=== PATIENT | female | born 1985 | race Caucasian/White ===

== ENCOUNTER 2020-11-15 10:10 | Emergency (ER) | payer MEDICARE, OTHER ==
[2020-11-15 10:19] VITALS: RESP 18
[2020-11-15] MEDS ORDERED: SODIUM CHLORIDE 0.9% 1,000 ML IV ONE ×2 (10:20→11:54)
[2020-11-15] MEDS ORDERED: ACETAMINOPHEN TAB 325 MG TAB PO STA (10:20)
[2020-11-15] MEDS ORDERED: SODIUM CHLORIDE 0.9% 1,000 ML IV SCH (10:30)
[2020-11-15 10:53] LABS: Basophils % (A) 1 %; Eosinophils # (A) 0.1 k/uL (0-0.7); Eosinophils % (A) 2 %; HCT 47.1 % (34.0-46.0); HGB 15.3 gm/dL (11.4-16.0); Lymphocytes # (A) 1.6 k/uL (1.0-4.8); Lymphocytes % (A) 33 %; MCH 28.3 pg (25.0-35.0); MCHC 32.6 g/dL (31.0-37.0); MCV 86.8 fL (80.0-100.0); Mean Platelet Volume 7.1; Monocytes # (A) 0.4 k/uL (0-1.0); Monocytes % (A) 7 %; Neutrophils # (A) 2.7 k/uL (1.3-7.7); Neutrophils % (A) 56 %; Platelet Count 197 k/uL (150-450); RBC 5.42 m/uL (3.80-5.40); RDW 13.9 % (11.5-15.5); WBC 4.9 k/uL (3.8-10.6)
[2020-11-15 11:04] LABS: ALT 50 U/L (4-34); AST 45 U/L (14-36); African American GFR (CKD) >90 (>60 ml/min/1.73 sqM); Albumin 4.4 g/dL (3.5-5.0); Alkaline Phosphatase 126 U/L (38-126); Anion Gap 12 mmol/L; Blood Urea Nitrogen 18 mg/dL (7-17); C Reactive Protein 27.1 mg/L (<10.0); Calcium 9.3 mg/dL (8.4-10.2); Carbon Dioxide 22 mmol/L (22-30); Chloride 105 mmol/L (98-107); Glucose 120 mg/dL (74-99); LDH 583 U/L (313-618); Non-African American GFR(CKD) 85 (>60 ml/min/1.73 sqM); Potassium 4.3 mmol/L (3.5-5.1); Sodium 139 mmol/L (137-145); Total Bilirubin 0.5 mg/dL (0.2-1.3); Total Protein 7.6 g/dL (6.3-8.2)
--- NOTE | 2020-11-15 11:04 | XR ---
EXAMINATION TYPE: XR chest 1V portable DATE OF EXAM: 11/15/2020 COMPARISON: NONE HISTORY: Shortness of breath,Suspected COVID-19 pneumonia TECHNIQUE: Single AP portable frontal view of the chest is obtained. FINDINGS: Slightly suboptimal due to portable technique and patient's large body habitus. There is n o focal air space opacity, pleural effusion, or pneumothorax seen. The cardiac silhouette size is up per limits of normal. Underlying scoliotic curvature or positioning. IMPRESSION: No acute airspace opacity clearly seen.
[2020-11-15 11:11] LABS: D-Dimer 0.45 mg/L FEU (<0.60); INR 0.9 (<1.2); Partial Thromboplastin Time 23.3 sec (22.0-30.0); Prothrombin Time 9.7 sec (9.0-12.0)
--- NOTE | 2020-11-15 11:17 | ED ---
SOB HPI - General Chief Complaint: Shortness of Breath Stated Complaint: Covid+/sob/fever Time Seen by Provider: 11/15/20 10:11 Source: patient, EMS Mode of arrival: EMS Limitations: no limitations - History of Present Illness Initial Comments: 35-year-old female with history of hypertension presenting to the ER today for chief complaint of fevers body aches loss of taste and smell. Patient states she has had fever body aches and loss of taste and smell since Wednesday. Patient states she has had worsening shortness of breath over the past 1-2 days. She denies chest pain. Deep inspiration leg swelling she admits to some nausea denies vomiting denies rashes. Patient denies any hemoptysis or pain with deep inspiration> patient states she has not been taking any medications for her fever because she had a reaction when she took tylenol WITH CODEINE and wasnt sure if it was the codeine or the tylenol that caused her legs to feel weird. Patient denies neck stiffness. Patient has no additional complaints. Upon arrival patient is not hypoxic but is febrile with HR elevated with is felt to be due to - Related Data Home Medications Medication Instructions Recorded Confirmed Acyclovir 400 mg PO BID 11/15/20 11/15/20 Amitriptyline HCl [Elavil] 25 mg PO HS 11/15/20 11/15/20 DULoxetine HCL [Cymbalta] 60 mg PO BID 11/15/20 11/15/20 LORazepam [Ativan] 1 mg PO Q6H PRN 11/15/20 11/15/20 Metoprolol Succinate [Toprol XL] 100 mg PO DAILY 11/15/20 11/15/20 Omeprazole 40 mg PO DAILY 11/15/20 11/15/20 lamoTRIgine [LaMICtal] 200 mg PO BID 11/15/20 11/15/20 medroxyPROGESTERone [Provera] 2.5 mg PO DAILY 11/15/20 11/15/20 Previous Rx's Medication Instructions Recorded Dexamethasone [Decadron] 6 mg PO DAILY 4 Days #4 tablet 11/15/20 Allergies Allergy/AdvReac Type Severity Reaction Status Date / Time adhesive tape Allergy Rash/Hives Verified 11/15/20 11:31 acetaminophen AdvReac Unknown Verified 11/15/20 11:31 [From Tylenol-Codeine #3] codeine AdvReac Unknown Verified 11/15/20 11:31 [From Tylenol-Codeine #3] Review of Systems ROS Statement: Those systems with pertinent positive or pertinent negative responses have been documented in the HPI. ROS Other: All systems not noted in ROS Statement are negative. Past Medical History Past Medical History: Hypertension History of Any Multi-Drug Resistant Organisms: None Reported Past Surgical History: No Surgical Hx Reported Past Psychological History: Anxiety Smoking Status: Current every day smoker Past Alcohol Use History: None Reported Past Drug Use History: None Reported General Exam - General Exam Comments Initial Comments: General: The patient is awake and alert, in no distress Eye: Pupils are equal, round and reactive to light, extra-ocular movements are intact. No nystagmus. There is normal conjunctiva bilaterally. No signs of icterus. Ears, nose, mouth and throat: There are moist mucous membranes and no oral lesions. Neck: The neck is supple, there is no tenderness or JVD. Cardiovascular: There is a regular rate and rhythm. No murmur, rub or gallop is appreciated. Respiratory: Lungs are clear to auscultation, respirations are non-labored, breath sounds are equal. No wheezes, stridor, rales, or rhonchi. No retractions or abdominal breathing Gastrointestinal: Soft, non-distended, non-tender abdomen without masses or organomegaly noted. There is no rebound or guarding present. Musculoskeletal: Normal ROM, no tenderness. Strength 5/5. Sensation intact. Pulses equal bilaterally 2+. Neurological: A&O x 3. CN II-XII intact, There are no obvious motor or sensory deficits. Coordination appears grossly intact. Speech is normal. Skin: Skin is warm and dry and no rashes or lesions are noted. No LE edema. Psychiatric: Cooperative, appropriate mood & affect, normal judgment. Limitations: no limitations Course Vital Signs 11/15/20 11/15/20 11/15/20 10:14 10:19 11:56 Temperature 100.4 F H 99.8 F H Pulse Rate 125 H 119 H Respiratory 18 18 18 Rate Blood Pressure 147/84 139/74 O2 Sat by Pulse 98 98 Oximetry Medical Decision Making - Medical Decision Making 35yo female presenting for body aches, fevers, dyspnea ocncern covid. Dimer (-), No extremity findings. Patient febrile on arrival. CXR clear. Patient is not hypoxic no appearing to be in respiratory distress. discussed admission vs discharge. patient prefers discharge at this time. reviewed case with attending Dr. Soto who is agreeable to discharge with oral steroids and return for worsening symptoms. patient is agreeable to this care plan and discharge at this time. Return parameters discussed at length - Lab Data Result diagrams: 11/15/20 10:33 11/15/20 10:33 Lab Results 11/15/20 11/15/20 11/15/20 Range/Units 10:33 10:33 10:33 WBC 4.9 (3.8-10.6) k/uL RBC 5.42 H (3.80-5.40) m/uL Hgb 15.3 (11.4-16.0) gm/dL Hct 47.1 H (34.0-46.0) % MCV 86.8 (80.0-100.0) fL MCH 28.3 (25.0-35.0) pg MCHC 32.6 (31.0-37.0) g/dL RDW 13.9 (11.5-15.5) % Plt Count 197 (150-450) k/uL MPV 7.1 Neutrophils % 56 % Lymphocytes % 33 % Monocytes % 7 % Eosinophils % 2 % Basophils % 1 % Neutrophils # 2.7 (1.3-7.7) k/uL Lymphocytes # 1.6 (1.0-4.8) k/uL Monocytes # 0.4 (0-1.0) k/uL Eosinophils # 0.1 (0-0.7) k/uL Basophils # 0.0 (0-0.2) k/uL PT 9.7 (9.0-12.0) sec INR 0.9 (<1.2) APTT 23.3 (22.0-30.0) sec D-Dimer 0.45 (<0.60) mg/L FEU Sodium 139 (137-145) mmol/L Potassium 4.3 (3.5-5.1) mmol/L Chloride 105 (98-107) mmol/L Carbon Dioxide 22 (22-30) mmol/L Anion Gap 12 mmol/L BUN 18 H (7-17) mg/dL Creatinine 0.88 (0.52-1.04) mg/dL Est GFR (CKD-EPI)AfAm >90 (>60 ml/min/1.73 sqM) Est GFR (CKD-EPI)NonAf 85 (>60 ml/min/1.73 sqM) Glucose 120 H (74-99) mg/dL Plasma Lactic Acid Yassine (0.7-2.0) mmol/L Calcium 9.3 (8.4-10.2) mg/dL Magnesium 2.0 (1.6-2.3) mg/dL Total Bilirubin 0.5 (0.2-1.3) mg/dL AST 45 H (14-36) U/L ALT 50 H (4-34) U/L Alkaline Phosphatase 126 (38-126) U/L Lactate Dehydrogenase 583 (313-618) U/L C-Reactive Protein 27.1 H (<10.0) mg/L Total Protein 7.6 (6.3-8.2) g/dL Albumin 4.4 (3.5-5.0) g/dL Coronavirus (PCR) (Not Detectd) 11/15/20 11/15/20 Range/Units 10:33 10:33 WBC (3.8-10.6) k/uL RBC (3.80-5.40) m/uL Hgb (11.4-16.0) gm/dL Hct (34.0-46.0) % MCV (80.0-100.0) fL MCH (25.0-35.0) pg MCHC (31.0-37.0) g/dL RDW (11.5-15.5) % Plt Count (150-450) k/uL MPV Neutrophils % % Lymphocytes % % Monocytes % % Eosinophils % % Basophils % % Neutrophils # (1.3-7.7) k/uL Lymphocytes # (1.0-4.8) k/uL Monocytes # (0-1.0) k/uL Eosinophils # (0-0.7) k/uL Basophils # (0-0.2) k/uL PT (9.0-12.0) sec INR (<1.2) APTT (22.0-30.0) sec D-Dimer (<0.60) mg/L FEU Sodium (137-145) mmol/L Potassium (3.5-5.1) mmol/L Chloride (98-107) mmol/L Carbon Dioxide (22-30) mmol/L Anion Gap mmol/L BUN (7-17) mg/dL Creatinine (0.52-1.04) mg/dL Est GFR (CKD-EPI)AfAm (>60 ml/min/1.73 sqM) Est GFR (CKD-EPI)NonAf (>60 ml/min/1.73 sqM) Glucose (74-99) mg/dL Plasma Lactic Acid Yassine 2.3 H* (0.7-2.0) mmol/L Calcium (8.4-10.2) mg/dL Magnesium (1.6-2.3) mg/dL Total Bilirubin (0.2-1.3) mg/dL AST (14-36) U/L ALT (4-34) U/L Alkaline Phosphatase (38-126) U/L Lactate Dehydrogenase (313-618) U/L C-Reactive Protein (<10.0) mg/L Total Protein (6.3-8.2) g/dL Albumin (3.5-5.0) g/dL Coronavirus (PCR) Detected A (Not Detectd) Disposition Clinical Impression: COVID-19, Fever, Tachycardia Disposition: HOME SELF-CARE Condition: Good Instructions (If sedation given, give patient instructions): Coronavirus Disease 2019 (COVID-19) Additional Instructions: Please use medication as discussed. Please follow-up with family doctor in the next 2 days , monitor oxygen at home by obtaining home pulse oximeter and return for hypoxia/worsening symptoms/shortness of breath or chest pain. Please return to emergency room if the symptoms increase or worsen or for any other concerns. Prescriptions: Dexamethasone [Decadron] 6 mg PO DAILY 4 Days #4 tablet Is patient prescribed a controlled substance at d/c from ED?: No Referrals: Nonstaff,Physician [Primary Care Provider] - 1-2 days Time of Disposition: 12:59
[2020-11-15] MEDS ORDERED: DEXAMETHASONE SOD PHOSPHATE 4 MG/ML 1 ML VIAL IV STA (11:54)
[2020-11-15] MEDS ORDERED: cefTRIAXone IN SWFI 1,000 MG/10 ML SYRINGE IVP STA (12:05)
[2020-11-15] MEDS ORDERED: KETOROLAC 15 MG/ML 1 ML VIAL IVP STA (12:58)
[2020-11-15 13:44] VITALS: TEMP 98.8
[2020-11-15 14:45] VITALS: BP 133/83; PULSE 76
[2020-11-15 19:34] LABS: Ferritin 148.8 ng/mL (10.0-291.0)
== END 2020-11-15 14:46 | disposition home or self-care (01) ==
LOC: EC 10:10
DX: U07.1 COVID-19 (principal); R00.0 Tachycardia, unspecified; F17.200 Nicotine dependence, unspecified, uncomplicated; F41.9 Anxiety disorder, unspecified; I10 Essential (primary) hypertension; Z79.899 Other long term (current) drug therapy; Z79.3 Long term (current) use of hormonal contraceptives
CPT/HCPCS: 36415; 93005; 85379; 80053; 82728; 83605; 83615; 83735; 85025; 85610; 85730; 86140; 87040; 84145; 87635; 71045; 99285; 96374; 96375; 96361; J1100; J0696; J1885